=== PATIENT | female | born 1970 | race Caucasian/White ===

== ENCOUNTER → 2016-07-11 | Outpatient (CLI) | payer OTHER ==
[~2016-07-11] MED LIST: CELEXA20 MG PO; CHOLESTEROL MED; DIAZEPAM PO; DIBUCAINE TP; FAMOTIDINE PO; FISH OIL 1,0001 EACH PO; FLEXERIL10 MG PO; HCTZ PO; HTN MED; LOPRESSOR PO; PERCOCET 10/3251 TAB PO; PRAVACHOL20 MG PO; PREDNISONE PO; SYNTHROID75 MCG PO; THYROID MED; VISTARIL PO; VOLTAREN75 MG PO; ZANTAC150 MG PO
--- NOTE | ~2016-07-11 | MR32 ---
[facility] A Service of [facility] & [facility] RADIOLOGY TEXT RESULTS PATIENT: PREET YO LOCATION: [facility] : 66 UNIT #: [id number] AGE: [address]: Alicia Phillips SEX: F ORDER DR: [id number] [address] [address] [id number] O MR#: [id number] Acc #: [id number] NAME: PREET YO : 1970 SEX: F STUDY DATE/TIME: 07/11/2016 10:12 UNIT: [facility] ROOM: STUDY DESCRIPTION: MR Cervical Wo Contrast Attending Physician: Alicia Phillips A.P.R.N. Referring Physician: Alicia Phillips A.P.R.N. Ordering Physician: Alicia Phillips A.P.R.N. Primary Care Physician: Alicia Phillips A.P.R.N. MRI CENTER REPORT This report is preliminary unless electronic signature is present. EXAM Cervical MRI HISTORY Increasing neck pain radiating to the right scapula for the past 4-5 years. TECHNIQUE Multiplanar imaging of the cervical spine was performed with short and long TR. FINDINGS The C2-3 and C3-4 levels are normal. There is a small central disc protrusion at C4-5 that contacts the ventral cord just to the right of midline but does not compress or deform it. The foramina are widely patent. At C5-6, there is mild broad-based posterior disc bulging that extends more to the right than to the left. It causes mild central stenosis and mild right foraminal stenosis. At C6-7, there is a large right-sided disc herniation. It compresses the exiting nerve root and compresses the cord to the right of midline. At C7-T1, there is a small left-sided uncovertebral joint osteophyte with mild left foraminal narrowing. The cord is normal in size and signal. There is no evidence of marrow edema or paraspinous mass. IMPRESSION 1. Large right-sided disc herniation C6-7. 2. Milder degenerative changes at the C4-5 and C5-6 levels as described [facility] A Service of [facility] & [facility] RADIOLOGY TEXT RESULTS PATIENT: PREET YO LOCATION: [facility] : 66 UNIT #: [id number] AGE: [address]: Alicia Phillips SEX: F ORDER DR: above. Dictated by... Eleazar Mtz M.D. THIS IS AN ELECTRONICALLY VERIFIED REPORT Eleazar Mtz M.D. at 07/12/2016 4:54 PM EV/eliot TD: 07/12/2016 10:10 JOB #: [id number] MRI CENTER REPORT Page 1 of 1
== END | disposition home or self-care (01) ==
LOC: SMRI 09:52
DX: M54.2 Cervicalgia (principal); M50.223 Other cervical disc displacement at C6-C7 level; M47.812 Spondylosis without myelopathy or radiculopathy, cervical region
CPT/HCPCS: 72141

== ENCOUNTER → 2016-09-16 | Outpatient (CLI) | payer OTHER ==
--- NOTE | ~2016-09-16 | CR58 ---
[facility] A Service of [facility] & [facility] RADIOLOGY TEXT RESULTS PATIENT: PREET YO LOCATION: [facility] : 66 UNIT #: [id number] AGE: [address]: FLOYD NOONAN APRN SEX: F ORDER DR: [id number] [place] [id number] O MR#: [id number] Acc #: [id number] NAME: PREET YO : 1970 SEX: F STUDY DATE/TIME: 09/16/2016 9:40 UNIT: [facility] ROOM: STUDY DESCRIPTION: CR Cervical Spine 2 or 3 Views Attending Physician: Floyd Noonan A.P.R.N. Referring Physician: Floyd Noonan A.P.R.N. Ordering Physician: Alicia Phillips A.P.R.N. Primary Care Physician: Alicia Phillips A.P.R.N. MEDICAL IMAGING REPORT This report is preliminary unless electronic signature is present. EXAM Cervical spine 09/16/2016 HISTORY 46-year-old female with neck pain 6 weeks postop cervical spine surgery. Pain in the left scapular region. No specific injury. COMPARISON Cervical spine 03/26/2016. MRI cervical spine 07/11/2016. FINDINGS Five views of the cervical spine demonstrate postoperative changes from anterior fusion at C6-7. No evidence of hardware failure or loosening. Cervical alignment is normal. Vertebral body heights are normal. Disc spaces are within normal limits. Prevertebral soft tissues are normal. Cervicothoracic junction is unremarkable. Atlantoaxial relationship normal. No acute fracture or subluxation. IMPRESSION Stable postoperative changes from anterior fusion at C6-7. No acute cervical spine injury. Dictated by... Mehdi Bar M.D. THIS IS AN ELECTRONICALLY VERIFIED REPORT Mehdi Bar M.D. at 09/17/2016 2:29 PM JOSEFA/eliot TD: 09/17/2016 11:49 JOB #: [id number] [facility] A Service of [facility] & [facility] RADIOLOGY TEXT RESULTS PATIENT: PREET YO [id number] : [birth year] UNIT #: [id number] AGE: [address]: FLOYD NOONAN APRN SEX: F ORDER DR: MEDICAL IMAGING REPORT Page 1 of 1
== END | disposition home or self-care (01) ==
LOC: SRAD 09:36
DX: M50.10 Cervical disc disorder with radiculopathy, unspecified cervical region (principal); Z98.1 Arthrodesis status
CPT/HCPCS: 72040